=== PATIENT | female | born 1980 | race African-American/Black ===

== ENCOUNTER 2017-03-21 15:07 | Emergency (ER) | payer SELFPAY ==
[~2017-03-21] VITALS: Ht 160 cm; Wt 72.0 kg
[~2017-03-21 15:07] MED LIST: FLAG500T PO
[2017-03-21 15:10] VITALS: BP 115/71; PULSE 83; RESP 22; TEMP 98.9; O2SAT 100
[2017-03-21] MEDS ORDERED: IBUP800T23 PO (16:40)
[2017-03-21] MEDS ORDERED: AMOX500C PO (16:40)
[2017-03-21] MEDS ORDERED: PERI0.126 SWISH-SPIT (16:40)
--- NOTE | 2017-03-21 16:41 | PD ---
HPI Chief Complaint: Oral / Dental Pain or Problem Time Seen by Provider: 16:39 Travel History International Travel<30 days: No Contact w/Intl Traveler<30days: No Traveled to known affect area: No History of Present Illness HPI 36-year-old female presents to the emergency Department with complaint of an abscess to her left upper gingival area and the pain that started yesterday. Denies drainage from the site. Reports facial edema. Denies fever, vomiting. Says she has a dentist appointment in about a month. Says she cracked a tooth below the site of the abscess a while back. Denies recent dental trauma. Has been taking ibuprofen for symptom management. No known allergies. Has no other medical complaints. No other modifying factors or associated signs and symptoms. PFSH Past Medical History Anemia: Yes Anxiety: Yes Depression: Yes Heart Rhythm Problems: No Cancer: No Cardiac Catheterization: No Cardiovascular Problems: No High Cholesterol: No Congestive Heart Failure: No Diabetes: No Diminished Hearing: No Endocrine: No Gastrointestinal Disorders: Yes (reflux) Genitourinary: No Headaches: Yes Hepatitis: No Hiatal Hernia: No Immune Disorder: No Musculoskeletal: Yes (chronic back pain) Neurologic: No Psychiatric: Yes (anxiety) Respiratory: No Immunizations Current: Yes Sickle Cell Disease: No Thyroid Disease: No ?: Not : 5 Para: 3 Miscarriage: 2 : 0 Dilation and Curettage (D&C): Yes Past Surgical History Coronary Artery Bypass Graft: No Gynecologic Surgery: Yes ( 07/02) Neurologic Surgery: No Other Surgery: No Social History Alcohol Use: No Tobacco Use: No Substance Use: No Allergies-Medications (Allergen,Severity, Reaction): Coded Allergies: No Known Allergies (Verified , 03/21/17) Reported Meds & Prescriptions Reported Meds & Active Scripts Active Magic Mouthwash Pediatric/Adult Liq (Lidocaine/Diphenhydr/Alum/Mg/Simeth) 60 Ml Susp 5 Ml SWISH-SPIT Q3HR PRN Each 5mL contains: Diphenydramine 4.5mg, Viscous Lidocaine 2% 10mg, Maalox Advanced Regular Strength 2.7ml Deltasone (Prednisone) 20 Mg Tab 40 Mg PO DAILY 4 Days start 03/22/2017 Clindamycin (Clindamycin HCl) 150 Mg Cap 450 Mg PO Q6H 10 Days Peridex Liq (Chlorhexidine Gluconate (Mouth) Liq) 0.12% Soln 15 Ml SWISH-SPIT BID 10 Days Ibuprofen 800 Mg Tab 800 Mg PO Q6HR PRN Flagyl (Metronidazole) 500 Mg Tab 500 Mg PO BID 7 Days Review of Systems Except as stated in HPI: all other systems reviewed are Neg Physical Exam Narrative GENERAL: Well-nourished, well-developed female patient, in no acute distress; afebrile, nontoxic-appearing SKIN: Warm and dry. HEAD: Atraumatic. Normocephalic. Left sided facial edema and tenderness on palpation; without erythema. No lymphadenopathy. EYES: Pupils equal and round. No scleral icterus. No injection or drainage. ENT: Mucosa pink and moist. Airway patent. MOUTH: Mucous membranes moist, no lesions, tongue and gums appear normal. Dental abscess noted above Tooth #13 and 14; tooth #14 is absent and the gingival area with tenderness on palpation; tooth #13 with tenderness on palpation also. Abscess is fluctuant and has pointing and is without drainage. NECK: Trachea midline. No lymphadenopathy. CARDIOVASCULAR: Regular rate. RESPIRATORY: No accessory muscle use. GASTROINTESTINAL: Flat. MUSCULOSKELETAL: No obvious deformities. No clubbing. No cyanosis. No edema. NEUROLOGICAL: Awake and alert. Oriented 3. No obvious cranial nerve deficits. Motor grossly within normal limits. Normal speech. PSYCHIATRIC: Appropriate mood and affect; insight and judgment normal. Data Data Last Documented VS Vital Signs Date Time Temp Pulse Resp B/P Pulse Ox O2 Delivery O2 Flow Rate FiO2 03/21/17 15:10 98.9 83 22 115/71 100 Room Air Orders Clindamycin Inj (Cleocin Inj) (03/21/17 17:00) Prednisone (Deltasone) (03/21/17 17:00) Ibuprofen (Motrin) (03/21/17 17:15) [facility] Medical Decision Making Medical Screen Exam Complete: Yes Emergency Medical Condition: Yes Medical Record Reviewed: Yes Differential Diagnosis Dentalgia, dental abscess, infected dental caries, dental caries Narrative Course 36-year-old female with dental abscess to left upper gingival area above the left upper tooth #13 and 14. Left-sided facial edema. Denies fever, vomiting. Patient is afebrile and nontoxic-appearing in the ER. Procedure note for incision and drainage of a dental abscess. Clindamycin 600 mg IM, Deltasone, ibuprofen administered in the ER. Clindamycin, ibuprofen, Deltasone, Peridex mouth rinse, Magic mouthwash prescribed for home. Emergency dental information sheet provided to the patient. Patient also states she does have a dental appointment scheduled in the month; instructed patient to call and possibly get her appointment rescheduled for earlier. Instructed patient to follow up with dentist. Instructed patient to follow up with primary care provider. Patient verbalizes understanding and agreement with treatment plan. Patient is medically cleared and stable for discharge. Discussed reasons to return to the emergency department. Patient agrees with treatment plan. The patients vital signs are stable and the patient is stable for outpatient follow-up and treatment. Patient discharged home, stable and in no acute distress. Procedures Procedure Narrative INCISION AND DRAINAGE OF DENTAL ABSCESS: The area was prepped and Hurricaine spray was used to anesthetize the area. The area was properly anesthetized. A number 11 scalpel was used to make a pinpoint incision into the area of the abscess. The abscess was drained. Sterile gauze applied to area. Diagnosis Primary Impression: Dental abscess Referrals: [facility] Dentist Primary Care Physician Patient Instructions: Dental Abscess (ED), Dental Caries (ED), General Instructions, Toothache (ED) Departure Forms: Tests/Procedures, Work Release Enter return to work date: Mar 22, 2017 Additional Instructions: Complete full course of antibiotics; check [facility] first for the lowest Meléndez for your clindamycin antibiotic prescription Ibuprofen or Tylenol as directed and as needed to reduce pain and inflammation Use Peridex as directed for oral hygiene Warm or cool compresses to the affected area Follow-up with dentist Follow-up with primary care provider Return to emergency department immediately with worsening of symptoms Med/Other Pt SpecificInfo: Prescription(s) given Scripts Rfcbqobyejgyorl-Ccqaabrqs-Gfw-Alum-Simeth Liq (Magic Mouthwash Pediatric/Adult Liq)60 Ml Susp5 Ml SWISH-SPIT Q3HR PRN (PAIN SCALE 1 TO 10) #60 ML Ref 0 Each 5mL contains: Diphenydramine 4.5mg, Viscous Lidocaine 2% 10mg, Maalox Advanced Regular Strength 2.7ml Prov:Chica Willard 03/21/17 Prednisone (Deltasone)20 Mg Tab40 Mg PO DAILY 4 Days Ref 0 start 03/22/2017 Prov:Chica Willard 03/21/17 Clindamycin 150 Mg [id number] Mg PO Q6H 10 Days Ref 0 Prov:Chica Willard 03/21/17 Chlorhexidine Gluconate (Mouth) Liq (Peridex Liq)0.12% Soln15 Ml SWISH-SPIT BID 10 Days Ref 0 Prov:Chica Willard 03/21/17 Ibuprofen 800 Mg Sps920 Mg PO Q6HR PRN (PAIN) #30 TAB Ref 0 Prov:Chica Willard 03/21/17 Disposition: 01 DISCHARGE HOME Condition: Stable Chica Willard Mar 21, 2017 16:41
[2017-03-21] MEDS ORDERED: CLIN1CAP5 PO (16:57)
[2017-03-21] MEDS ORDERED: PRED-503 PO ×2 (16:57→17:22)
[2017-03-21] MEDS ORDERED: MAGICPED SWISH-SPIT ×2 (16:57→17:22)
[2017-03-21] MEDS ORDERED: CLINDAMYCIN PHOS 600 MG/4 ML VIAL IM ONE (17:00)
[2017-03-21] MEDS ORDERED: predniSONE 20 MG TAB PO ONE (17:00)
[2017-03-21] MEDS ORDERED: IBUPROFEN 800 MG TAB PO ONE (17:15)
== END 2017-03-21 18:10 | disposition home or self-care (01) ==
LOC: NEPK 15:07
DX: K04.7 Periapical abscess without sinus (principal)
CPT/HCPCS: 41800; 96372; 99284; J7512; 10060

== ENCOUNTER 2017-09-12 02:39 | Emergency (ER) | payer SELFPAY ==
[~2017-09-12] VITALS: Ht 157.5 cm; Wt 70.0 kg
[~2017-09-12 02:39] MED LIST changes: +CLIN150C14 PO; +IBUP1TAB7 PO; +MAGICPED SWISH-SPIT; +PERI0.126 SWISH-SPIT; +PRED-503 PO
[2017-09-12 02:41] VITALS: BP 152/80; PULSE 84; RESP 16; TEMP 98.7; O2SAT 99
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
[2017-09-12 03:50] LABS: BACTERIA, URINE RARE /hpf; BILIRUBIN, URINE NEG (NEG); BLOOD, URINE NEG (NEG); GLUCOSE,URINE NEG (NEG); KETONE, URINE NEG (NEG); MUCUS URINE FEW /lpf (OCC); NITRITE,URINE NEG (NEG); PH, URINE 6.5 (5.0-8.5); SQUAMOUS EPITHELIAL CELL URINE 1 /hpf (0-5); URINE COLOR YELLOW (YELLW/STRAW); URINE LEUKOCYTE ESTERASE NEG (NEG)
[2017-09-12] MEDS ORDERED: ONDANSETRON ODT 4 MG TAB PO ONE (05:30)
[2017-09-12] MEDS ORDERED: LIDOCAINE HCL 1% 20 ML VIAL INFIL ONE (05:30)
[2017-09-12] MEDS ORDERED: KETOROLAC TROMETHAMINE 60 MG/2 ML (IM) VIAL IM ONE (05:30)
[2017-09-12] MEDS ORDERED: metroNIDAZOLE 500 MG TAB PO ONE (05:30)
[2017-09-12] MEDS ORDERED: AZITHROMYCIN 250 MG TAB PO ONE (05:30)
[2017-09-12] MEDS ORDERED: cefTRIAXone 250 MG VIAL IM ONE (05:30)
[2017-09-12] MEDS ORDERED: ZOFR4TAB3 SL (06:32)
[2017-09-12] MEDS ORDERED: METR1TAB76 PO (06:32)
[2017-09-12 06:37] VITALS: BP 155/60
== END 2017-09-12 06:43 | disposition home or self-care (01) ==
LOC: NEPE 02:39
DX: N76.0 Acute vaginitis (principal); B96.89 Other specified bacterial agents as the cause of diseases classified elsewhere; F32.9 Major depressive disorder, single episode, unspecified; G89.29 Other chronic pain
CPT/HCPCS: 81001; 84703; 87210; 87491; 87591; 96372; 99284; J0696; J1885

== ENCOUNTER 2018-01-19 15:58 | Emergency (ER) | payer OTHER ==
[~2018-01-19] VITALS: Ht 167.6 cm; Wt 76.0 kg
[~2018-01-19 15:58] MED LIST changes: -CLIN150C14 PO; -FLAG500T PO; -IBUP1TAB7 PO; -MAGICPED SWISH-SPIT; +METR1TAB76 PO; -PERI0.126 SWISH-SPIT; -PRED-503 PO; +ZOFR4TAB3 SL
[2018-01-19] MEDS ORDERED: IOHEXOL 350 MG/ML 10 ML VIAL (for RAD DIAG) IVCONTRAST ONE (15:59)
[2018-01-19 16:06] VITALS: BP 144/93; PULSE 90; RESP 20; TEMP 98.8; O2SAT 99
[2018-01-19] MEDS ORDERED: ACETAMINOPHEN/HYDROcodone 325 MG/5 MG TAB PO ONE (16:15)
[2018-01-19] MEDS ORDERED: HYDR8TAB PO (16:35)
[2018-01-19 17:24] LABS: AUTOMATED NEUTROPHIL # 3.4 TH/MM3 (1.8-7.7); BASOPHIL % 0.3 % (0.0-2.0); EOSINOPHIL # 0.1 TH/MM3 (0-0.4); EOSINOPHIL % 2.5 % (0.0-4.0); HEMATOCRIT 34.1 % (35.0-46.0); HEMOGLOBIN 10.7 GM/DL (11.6-15.3); LYMPH % 29.4 % (9.0-44.0); LYMPHOCYTE # 1.7 TH/MM3 (1.0-4.8); MEAN CELL VOLUME 73.8 FL (80.0-100.0); MEAN CORPUSCULAR HEMOGLOBIN 23.1 PG (27.0-34.0); MEAN CORPUSCULAR HGB CONC 31.3 % (32.0-36.0); MEAN PLATELET VOLUME 8.3 FL (7.0-11.0); MONO % 7.9 % (0.0-8.0); MONOCYTE # 0.5 TH/MM3 (0-0.9); NEUT % 59.9 % (16.0-70.0); PLATELET COUNT 288 TH/MM3 (150-450); RED BLOOD COUNT 4.62 MIL/MM3 (4.00-5.30); RED CELL DISTRIBUTION WIDTH 14.7 % (11.6-17.2); WHITE BLOOD COUNT 5.7 TH/MM3 (4.0-11.0)
[2018-01-19 17:47] LABS: ALBUMIN 4.5 GM/DL (3.4-5.0); ALT (GPT) 20 U/L (10-53); AST (GOT) 18 U/L (15-37); BICARBONATE 26.6 MEQ/L (21.0-32.0); BLOOD UREA NITROGEN 12 MG/DL (7-18); CALCIUM 9.4 MG/DL (8.5-10.1); CHLORIDE 105 MEQ/L (98-107); CREATININE 0.65 MG/DL (0.50-1.00); GLOMERULAR FILTRATION RATE 123 ML/MIN (>89); GLUCOSE,RANDOM 98 MG/DL (74-106); SODIUM (NA) 140 MEQ/L (136-145)
[2018-01-19 17:50] LABS: ALKALINE PHOSPHATASE 54 U/L (45-117); TOTAL BILIRUBIN ADULT 0.7 MG/DL (0.2-1.0); TOTAL PROTEIN 8.2 GM/DL (6.4-8.2)
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
[2018-01-19] MEDS ORDERED: KETOROLAC TROMETHAMINE 30 MG/ML (IVP) VIAL IV PUSH ONE (18:45)
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
[2018-01-19 19:00] VITALS: BP 144/92; PULSE 70; RESP 16; O2SAT 98
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
[2018-01-19] MEDS ORDERED: CYCL10TA PO (19:54)
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
== END 2018-01-19 20:27 | disposition home or self-care (01) ==
LOC: NEPE 15:58
DX: M54.9 Dorsalgia, unspecified (principal); R51 Headache; M54.2 Cervicalgia; V47.5XXA Car driver injured in collision with fixed or stationary object in traffic accident, initial encounter; F41.9 Anxiety disorder, unspecified; F32.9 Major depressive disorder, single episode, unspecified; K21.9 Gastro-esophageal reflux disease without esophagitis; G89.29 Other chronic pain
CPT/HCPCS: 70450; 71260; 72125; 72129; 72132; 74177; 80053; 84703; 85025; 96374; 99285; J1885; Q9967